=== PATIENT | female | born 1995 | race Caucasian/White ===

== ENCOUNTER 2018-01-02 12:44 | Emergency (ER) | payer BC ==
--- OUTSIDE RECORDS SUMMARY | 2018-01-02 12:57 | XMS REPORT ---
:1995 External Reference #:[id number] Author Organization [facility] [employer] Address [address] [address] Phone [phone] Care Team Providers Name Role Phone Tyler Boyer III, MD Primary Care Physician Unavailable Payers Type Date Identification Numbers Payment Provider Subscriber Commercial Policy Number: [id number] [employer] Jorge Luis Jessica PayID: [id number] [address] [address] [place] [address] Problems Description No Active Problems Family History Date Family Member(s) Problem(s) Comments General MGF-dementia, artificial heart valve General PGM- diabetes, heart disease Father Hypertension Mother Ovarian Cancer Mother Cervical Cancer Mother tourette's syndrome Social History Type Date Description Comments Marital Status Single Lives With Parents 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[facility] [place] Use Denies alcohol use Smoking Patient has never smoked Recreational Drug Use Denies Drug Use Daily Caffeine Does Not Consume Caffeine Exercise Type/Frequency Exercises regularly aerobic routine most days, 15 min Allergies, Adverse Reactions, Alerts Date Description Reaction Status Severity Comments 07/07/2017 Penicillins Hives active Medications Medication Date Status Form Strength Qnty SIG Indications Ordering Provider Lactaid 08/10/ Active Chewtabs 30uni take 1 tab by Andres Olivares 2016 ts mouth after Floyd, eating dairy DO FACC Metoprolol 08/10/ Active Tablets 25mg 15tab 1 by mouth as I49.3 Andres Olivares Tartrate 2017 s needed for Floyd, frequent DO FACC palpitations Microgestin / Active Tablets 1.5-30mg- 1 tablet by Unknown 1.5/30 0000 mcg mouth daily Tacrolimus / Active Ointment 0.1% apply to Unknown 0000 affected area prn Acetaminophen / Active Tablets 325mg 2 tablets by Unknown 0000 mouth every 6 hours as needed for pain/fever Midol Complete 00/ Active as needed Unknown 0000 Zofran / Active Tablets 4mg take 1 by Unknown 0000 mouth twice a day as needed for nausea Ketoconazole / Hx Cream 2% apply twice a Unknown 0000 - day 2016 Minocycline ER / Hx Tablets 90mg 1 by mouth Mcalliste 0000 daily Fernanda fong MD Immunizations CPT Code Status Date Vaccine Lot # [id number] Given 2015 Tdap - Tetanus/Diptheria/Acellular Pertussis [id number] Given 12/15/2010 Tdap - Tetanus/Diptheria/Acellular Pertussis Vital Signs Date Vital Result Comment 12/20/2017 Heart Rate 80 /min Respiratory Rate 16 /min Body Temperature 98.9 F 11/15/2017 Weight 134.00 lb Heart Rate 109 /min BP Systolic Sitting 118 mmHg BP Diastolic Sitting 76 mmHg Body Temperature 99.3 F O2 % BldC Oximetry 98 % 11/08/2017 Height 69 inches 5'9" Weight 135.00 lb Heart Rate 80 /min BP Systolic 120 mmHg BP Diastolic 82 mmHg Respiratory Rate 16 /min Body Temperature 98.5 F BMI (Body Mass Index) 19.9 kg/m2 10/06/2017 Weight 135.00 lb Heart Rate 94 /min BP Systolic 120 mmHg BP Diastolic 70 mmHg Body Temperature 97.6 F O2 % BldC Oximetry 98 % 08/10/2017 Height 67 inches 5'7" Weight 131.50 lb Heart Rate 88 /min BP Systolic 132 mmHg Rue reg cuff BP Diastolic 96 mmHg Rue reg cuff BP Systolic Sitting 128 mmHg Lue reg ncuff BP Diastolic Sitting 96 mmHg Lue reg ncuff BP Systolic Standing 124 mmHg Lue reg cuff BP Diastolic Standing 94 mmHg Lue reg cuff Respiratory Rate 16 /min BMI (Body Mass Index) 20.6 kg/m2 07/07/2017 Height 67 inches 5'7" Weight 138.38 lb Heart Rate 81 /min BP Systolic Sitting 120 mmHg BP Diastolic Sitting 78 mmHg Body Temperature 98.2 F O2 % BldC Oximetry 97 % BMI (Body Mass Index) 21.7 kg/m2 Results Test Date Test Result H/L Range Note Basic Metabolic Panel 07/12/2017 Sodium 137 mmol/L 133-145 Potassium 4.2 mmol/L 3.5-5.0 Chloride 103 mmol/L 101-111 Co2 Carbon Dioxide 27 mmol/L 22-32 Anion Gap 7 mmol/L 2-11 Glucose 73 mg/dL 70-100 Blood Urea Nitrogen 6 mg/dL 6-24 Creatinine 0.59 mg/dL 0.51-0.95 BUN/Creatinine Ratio 10.2 8-20 Calcium 9.2 mg/dL 8.6-10.3 Egfr Non- 127.5 >60 Egfr 163.9 >60 1 Laboratory test finding 07/12/2017 Magnesium 2.0 mg/dL 1.9-2.7 TSH (Thyroid Stim Horm) 1.88 mcIU/mL 0.34-5.60 Lipid Profile (Trig/Chol/HDL) 07/12/2017 Triglycerides 115 mg/dL 2 Cholesterol 273 mg/dL 3 HDL Cholesterol 41.4 mg/dL 4 LDL Cholesterol 209 mg/dL 5 1 Because ethnic data is not always readily available, this report includes an eGFR for both -Americans and non- Americans. The National Kidney Disease Education Program (NKDEP) does not endorse the use of the MDRD equation for patients that are not between the ages of 18 and 70, are , have extremes of body size, muscle mass, or nutritional status, or are non- or non-. According to the National Kidney Foundation, irrespective of diagnosis, the stage of the disease is based on the level of kidney function: Stage Description GFR(mL/min/1.73 m(2)) 1 Kidney damage with normal or decreased GFR 90 2 Kidney damage with mild decrease in GFR 60-89 3 Moderate decrease in GFR 30-59 4 Severe decrease in GFR 15-29 5 Kidney failure <15 (or dialysis) 2 Desirable <150 Borderline high 150-199 High 200-499 Very High >500 3 Desirable <200 Borderline high 200-239 High >239 4 Low <40 Desirable: 40-60 High: >60 5 Desirable: <100 mg/dL Near Optimal: 100-129 mg/dL Borderline High: 130-159 mg/dL High: 160-189 mg/dL Very High: >189 mg/dL Procedures Date CPT Code Description Status 08/10/2017 47600 EKG Tracing & Interpretation Completed 07/14/2017 74737 Holter Monitor Review (24 hr)dr potts &alicia; shelley Completed only 07/11/2017 96891 ECG Monitor/Recording W/Visual Superimposition Scanning Completed Encounters Type Date Location Provider CPT E/M Dx Office Visit 11/15/2017 [facility] Tyler Boyer, [address] R11.0 9:00a - Flaco Chou Office Visit 11/08/2017 [facility] [place] [address] N64.59 2:45p Of [facility] Office Visit 10/06/2017 [facility] Internal Medicine Khadijah Jackson, 80534 N63.10 10:30a - Ranjan Chou Office Visit 08/10/2017 [facility] Andres Floyd, [address] I49.3 1:00p [facility] FACC E78.5 Office Visit 07/07/2017 3:50p [facility] Internal Medicine Tyler Boyre, 00902 Z00.00 - Flaco Chou R00.2 Z13.1 Z13.220 Z85.43 Plan of Care 12/20/2017 - Shruti Hwang MDN64.59 Other signs and symptoms in breastNew Labs:Cytology Non-GynSurgical PathologyFollow up:As needed
--- NOTE | 2018-01-02 14:01 | RAD ---
HISTORY: Palpitation COMPARISONS: September 12, 2015 VIEWS: 4: Frontal dual-energy and lateral views of the chest. FINDINGS: CARDIOMEDIASTINAL SILHOUETTE: The cardiomediastinal silhouette is normal. JORDEN: The jorden are normal. PLEURA: The costophrenic angles are sharp. No pleural abnormalities are noted. LUNG PARENCHYMA: There is minimal linear opacification of the left lung base, stable from 2015, suggestive of pleural parenchymal scarring ABDOMEN: The upper abdomen is clear. There is no subphrenic gas. BONES AND SOFT TISSUES: There is a scoliotic curvature of the spine. OTHER: None. IMPRESSION: NO ACTIVE CARDIOPULMONARY DISEASE.
[2018-01-02 14:35] LABS: ABS Basophils 0 10^3/ul (0-0.2); ABS Eosinophils 0 10^3/ul (0-0.6); ABS Lymphocytes 1.5 10^3/ul (1.0-4.8); ABS Monocytes 0.4 10^3/ul (0-0.8); ABS Neutrophils 2.7 10^3/ul (1.5-7.7); ABS Nucleated RBC 0 10^3/ul; Eosinophil % 0.9 % (0-6); Hematocrit 44 % (35-47); Hemoglobin 14.8 g/dl (12.0-16.0); Lymphocyte % 32.5 % (25-47); Mean Corpuscular HGB Conc 34 g/dl (31-36); Mean Corpuscular Hemoglobin 30 pg (27-31); Mean Corpuscular Volume 90 fL (80-97); Mean Platelet Volume 7.9 um3 (7.4-10.4); Nucleated Red Blood Cells % 0.1; Platelet Count 188 10^3/ul (150-450); Red Blood Count 4.89 10^6/ul (4.0-5.4); Red Cell Distribution Width 14 % (10.5-15); White Blood Count 4.6 10^3/ul (3.5-10.8)
--- NOTE | 2018-01-02 15:49 | ED ---
Philipp Jeter Julia, scribed for Senthil Cortez on 01/02/18 at 1342 . Palpitations / Dysrhythmia - HPI Summary HPI Summary: This patient is a 22 year old F presenting to [facility] accompanied by her parents with a chief complaint of palpitations after eating dinner last night and after eating breakfast this morning. Patient describes palpitations as "racing ".Patient reports lightheadedness. Patient denies chest pain and SOB. Patient was a history of PVCs detected by a halter monitor. Patient is currently taking oral contraceptives. Patient denies a history of anxiety. - History of Current Complaint Chief Complaint: EDDysrhythmPalp Time Seen by Provider: 01/02/18 13:22 Hx Obtained From: Patient Onset/Duration: Sudden Onset, Resolved Timing: Intermittent Episodes Lasting: Character: Fast Aggravating: Other - eating Associated Signs & Symptoms: Lightheadedness Related History: Similar Episode/Dx as - PVCs - Allergy/Home Medications Allergies/Adverse Reactions: Allergies Allergy/AdvReac Type Severity Reaction Status Date / Time MS Penicillins [Penicillins] Allergy Hives Verified 09/12/15 12:24 PMH/Surg Hx/FS Hx/Imm Hx Cardiovascular History: Reports: Other Cardiovascular Problems/Disorders Musculoskeletal History: Denies: Hx Scoliosis Neurological History: Reports: Hx Headaches Denies: Other Neuro Impairments/Disorders - Cancer History Cancer Type, 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 Negative: Chest Pain Negative: Shortness Of Breath All Other Systems Reviewed And Are Negative: Yes Physical Exam - Summary Physical Exam Summary: Appearance: Well appearing, no pain distress Skin: warm, dry, reflects adequate perfusion Head/face: normal Eyes: EOMI, SMITA ENT: normal Neck: supple, non-tender Respiratory: CTA, breath sounds present Cardiovascular: RRR, pulses symmetrical Abdomen: non-tender, soft Bowel: present Musculoskeletal: normal, strength/ROM intact Neuro: normal, sensory motor intact, A&Ox3 Triage Information Reviewed: Yes Vital Signs On Initial Exam: Initial Vitals Temp Pulse Resp BP Pulse Ox 98.2 F 116 20 133/91 99 01/02/18 12:46 01/02/18 12:46 01/02/18 12:46 01/02/18 12:46 01/02/18 12:46 Vital Signs Reviewed: Yes Diagnostics - Vital Signs Vital Signs Temp Pulse Resp BP Pulse Ox 01/02/18 12:46 98.2 F 116 20 133/91 99 - Laboratory Lab Results: Lab Results 01/02/18 01/02/18 01/02/18 Range/Units 14:24 14:24 14:24 WBC 4.6 (3.5-10.8) 10^3/ul RBC 4.89 (4.0-5.4) 10^6/ul Hgb 14.8 (12.0-16.0) g/dl Hct 44 (35-47) % MCV 90 (80-97) fL MCH 30 (27-31) pg MCHC 34 (31-36) g/dl RDW 14 (10.5-15) % Plt Count 188 (150-450) 10^3/ul MPV 7.9 (7.4-10.4) um3 Neut % (Auto) 58.1 (38-83) % Lymph % (Auto) 32.5 (25-47) % [place] % (Auto) 7.6 H (0-7) % Eos % (Auto) 0.9 (0-6) % Baso % (Auto) 0.9 (0-2) % Absolute Neuts (auto) 2.7 (1.5-7.7) 10^3/ul Absolute Lymphs (auto) 1.5 (1.0-4.8) 10^3/ul Absolute Monos (auto) 0.4 (0-0.8) 10^3/ul Absolute Eos (auto) 0 (0-0.6) 10^3/ul Absolute Basos (auto) 0 (0-0.2) 10^3/ul Absolute Nucleated RBC 0 10^3/ul Nucleated RBC % 0.1 INR (Anticoag Therapy) (0.77-1.02) APTT (26.0-36.3) seconds D-Dimer, Quantitative (Less Than 230) ng/mL Sodium 137 (133-145) mmol/L Potassium 3.7 (3.5-5.0) mmol/L Chloride 105 (101-111) mmol/L Carbon Dioxide 25 (22-32) mmol/L Anion Gap 7 (2-11) mmol/L BUN 10 (6-24) mg/dL Creatinine 0.65 (0.51-0.95) mg/dL Est GFR ( Amer) 145.3 (>60) Est GFR (Non-Af Amer) 113.0 (>60) BUN/Creatinine Ratio 15.4 (8-20) Glucose 79 (70-100) mg/dL Calcium 9.7 (8.6-10.3) mg/dL Total Bilirubin 0.50 (0.2-1.0) mg/dL AST 12 L (13-39) U/L ALT 10 (7-52) U/L Alkaline Phosphatase 35 (34-104) U/L Troponin I 0.00 (<0.04) ng/mL B-Natriuretic Peptide 19 ( - 100) pg/mL Total Protein 7.2 (6.4-8.9) g/dL Albumin 4.5 (3.2-5.2) g/dL Globulin 2.7 (2-4) g/dL Albumin/Globulin Ratio 1.7 (1-3) TSH 1.53 (0.34-5.60) mcIU/mL Beta HCG, Quant < 0.60 mIU/mL 01/02/18 Range/Units 14:24 WBC (3.5-10.8) 10^3/ul RBC (4.0-5.4) 10^6/ul Hgb (12.0-16.0) g/dl Hct (35-47) % MCV (80-97) fL MCH (27-31) pg MCHC (31-36) g/dl RDW (10.5-15) % Plt Count (150-450) 10^3/ul MPV (7.4-10.4) um3 Neut % (Auto) (38-83) % Lymph % (Auto) (25-47) % [place] % (Auto) (0-7) % Eos % (Auto) (0-6) % Baso % (Auto) (0-2) % Absolute Neuts (auto) (1.5-7.7) 10^3/ul Absolute Lymphs (auto) (1.0-4.8) 10^3/ul Absolute Monos (auto) (0-0.8) 10^3/ul Absolute Eos (auto) (0-0.6) 10^3/ul Absolute Basos (auto) (0-0.2) 10^3/ul Absolute Nucleated RBC 10^3/ul Nucleated RBC % INR (Anticoag Therapy) 1.00 (0.77-1.02) APTT 30.6 (26.0-36.3) seconds D-Dimer, Quantitative < 200 (Less Than 230) ng/mL Sodium (133-145) mmol/L Potassium (3.5-5.0) mmol/L Chloride (101-111) mmol/L Carbon Dioxide (22-32) mmol/L Anion Gap (2-11) mmol/L BUN (6-24) mg/dL Creatinine (0.51-0.95) mg/dL Est GFR ( Amer) (>60) Est GFR (Non-Af Amer) (>60) BUN/Creatinine Ratio (8-20) Glucose (70-100) mg/dL Calcium (8.6-10.3) mg/dL Total Bilirubin (0.2-1.0) mg/dL AST (13-39) U/L ALT (7-52) U/L Alkaline Phosphatase (34-104) U/L Troponin I (<0.04) ng/mL B-Natriuretic Peptide ( - 100) pg/mL Total Protein (6.4-8.9) g/dL Albumin (3.2-5.2) g/dL Globulin (2-4) g/dL Albumin/Globulin Ratio (1-3) TSH (0.34-5.60) mcIU/mL Beta HCG, Quant mIU/mL Result Diagrams: 01/02/18 14:24 01/02/18 14:24 Lab Statement: Any lab studies that have been ordered have been reviewed, and results considered in the medical decision making process. - Radiology CXR Radiology Interpretation Completed By: Radiologist - NO ACTIVE CARDIOPULMONARY DISEASE. ED Physician has reviewed this chart. - EKG 1331 Cardiac Rate: NL - at 97 BPM EKG Rhythm: Sinus Rhythm EKG Interpretation: no acute changes Re-Evaluation - Re-Evaluation 1 Re-Evaluation Time: 15:32 Comment: Results discussed with patient; pt seems disappointed. Patient will be discharged. Course/Dx - Course Course Of Treatment: Patient presents with palpitations after eating dinner last night and after eating breakfast this morning. Patient denies chest pain and SOB. Patient was a history of PVCs. An EKG is of no acute concern. A CXR reveals no acute pathology. Lab results are unremarkable. Patient will be discharged. - Diagnoses Differential Diagnosis/HQI/PQRI: Positive: Panic Disorder, Pulmonary Embolism Provider Diagnoses: Palpitations, History of anxiety Discharge - Sign-Out/Discharge Documenting (check all that apply): Discharge - Discharge Plan Condition: Stable Disposition: HOME Prescriptions: hydrOXYzine pamoate [Vistaril] 25 mg PO TID #15 capsule MDD 3 Patient Education Materials: Heart Palpitations (ED) Referrals: [facility] [place] [facility] [place]Outside] - As Soon As Possible (Follow up with Physician Referral center to find a primary care physician.) - Billing Disposition and Condition Condition: STABLE Disposition: HOME The documentation as recorded by the Philipp hutchison Julia accurately reflects the service I personally performed and the decisions made by , Senthil Cortez.
[2018-01-02 15:54] VITALS: BP 124/86
== END 2018-01-02 15:56 | disposition home or self-care (01) ==
LOC: ED 12:44
DX: R00.2 Palpitations (principal); Z86.79 Personal history of other diseases of the circulatory system; Z85.43 Personal history of malignant neoplasm of ovary
CPT/HCPCS: 36415; 71046; 80053; 83880; 84443; 84484; 84702; 85025; 85379; 85610; 85730; 93005; 99282

== ENCOUNTER 2019-03-30 13:10 | Emergency (ER) | payer BC ==
[2019-03-30 13:17] VITALS: BP 109/72
--- NOTE | 2019-03-30 15:44 | UC ---
Skin Complaint HPI - HPI Summary HPI Summary: 23 y/o female presents to the urgent care c/o a lump in her posterior neck - History of Current Complaint Chief Complaint: UCSkin Time Seen by Provider: 03/30/19 15:09 Stated Complaint: LUMP ON NECK Hx Obtained From: Patient Hx Last Menstrual Period: 02/27/19 Pain Intensity: 0 - Allergy/Home Medications Allergies/Adverse Reactions: Allergies Allergy/AdvReac Type Severity Reaction Status Date / Time Penicillins Allergy Hives Verified 03/30/19 13:17 PMH/Surg Hx/FS Hx/Imm Hx - Surgical History Surgical History: Yes Surgery Procedure, Year, and Place: Left ovary removed - Family History Known Family History: Negative: Cardiac Disease Family History: Father with high cholesterol - Social History Alcohol Use: None Substance Use Type: None Smoking Status (MU): Never Smoked Tobacco Review of Systems All Other Systems Reviewed And Are Negative: Yes Physical Exam - Summary Physical Exam Summary: VITAL SIGNS: Reviewed. GENERAL: Patient is a well developed and nourished thin female child who is sitting comfortable in the examining table. Patient is not in any acute respiratory distress. HEAD AND FACE: No signs of trauma. No ecchymosis, hematomas or skull depressions. No sinus tenderness. EYES: PERRLA, EOMI x 2, No injected conjunctiva, no nystagmus. No photophobia. EARS: Hearing grossly intact. Ear canals and tympanic membranes are within normal limits. MOUTH: Positive pharynx with mild erythema, no exudates, No B/L tonsillar enlargement , no exudate. Uvula in midline. edematous nasal mucosa w/ clear nasal discharge, clear PND NECK: Supple, trachea is midline, Positive anterior cervical lymphadenopathy, no JVD, no carotid bruit, no c-spine tenderness, neck with full ROM. No meningeal signs, no Kernig's or brudzinskis signs. CHEST: Symmetric, no tenderness at palpation LUNGS: Clear to auscultation bilaterally. No wheezing or crackles. CVS: Regular rate and rhythm, S1 and S2 present, no murmurs or gallops appreciated. ABDOMEN: Soft, non-tender. No signs of distention. No rebound no guarding, and no masses palpated. Bowel sounds are normal. EXTREMITIES: FROM in all major joints, no edema, no cyanosis or clubbing. NEURO: Alert and oriented x 3. No acute neurological deficits. Pt follows commands. SKIN: Dry and warm Triage Information Reviewed: Yes Vital Signs: Initial Vital Signs Temp 98.9 F 03/30/19 13:14 Pulse 73 03/30/19 13:14 Resp 18 03/30/19 13:14 BP 109/72 03/30/19 13:14 Pulse Ox 100 03/30/19 13:14 Course/Dx - Differential Diagnoses - Skin Complaint Differential Diagnoses: Abscess, Cellulitis, Lymphadenitis, Lymphangitis, Other - lymphoadenophathy, - Diagnoses Provider Diagnosis: Lymphadenopathy, posterior cervical Discharge - Sign-Out/Discharge Documenting (check all that apply): Patient Departure - d/c home All imaging exams completed and their final reports reviewed: No Studies - Discharge Plan Condition: Stable Disposition: HOME Patient Education Materials: Lymphadenopathy (ED) Referrals: Khadijah Jacksno MD [Primary Care Provider] - 2 Days Additional Instructions: 1-Please take ibuprofen PO q6-8hrs prn as instructed after meals to alleviate pain and swelling. Increase fluid intake, eat well, rest and avoid strenuous exercise 2- Blood works was sent to the lab you will be notified of any abnormality for further management. 3- close observation and if it increases in size please f/y w/ your PCP in 1 week for further evaluation and treatment - Billing Disposition and Condition Condition: STABLE Disposition: Home
[2019-03-30 19:00] LABS: ABS Eosinophils 0.1 10^3/ul (0-0.6); ABS Lymphocytes 1.8 10^3/ul (1.0-4.8); ABS Monocytes 0.3 10^3/ul (0-0.8); ABS Neutrophils 2.1 10^3/ul (1.5-7.7); Eosinophil % 1.4 %; Hematocrit 40 % (35-47); Hemoglobin 13.9 g/dL (12.0-16.0); Lymphocyte % 42.1 %; Mean Corpuscular HGB Conc 35 g/dL (31-36); Mean Corpuscular Hemoglobin 30 pg (27-31); Mean Corpuscular Volume 87 fL (80-97); Mean Platelet Volume 9.3 fL (7.4-10.4); Platelet Count 189 10^3/uL (150-450); Red Blood Count 4.57 10^6 /uL (3.70-4.87); Red Cell Distribution Width 13 % (10-15); White Blood Count 4.3 10^3/uL (3.5-10.8)
[2019-03-30 19:04] LABS: Albumin 4.3 g/dL (3.2-5.2); Potassium 3.9 mmol/L (3.5-5.0); Total Bilirubin 0.4 mg/dL (0.2-1.0)
[2019-03-30 19:10] LABS: BUN/Creatinine Ratio 17.6 (8-20); EGFR African American 128.6 (>60); EGFR Non-African American 106.3 (>60); Globulin 2.2 g/dL (2-4); Total Protein 6.5 g/dL (6.4-8.9)
--- NOTE | 2019-03-31 08:31 | UC ---
- Progress Note Progress Note: CBC wnl, mono neg cmp neg crp wnl no change ljj 03/31/19 Course/Dx - Diagnoses Provider Diagnoses: Lymphadenopathy, posterior cervical Discharge - Sign-Out/Discharge Documenting (check all that apply): Post-Discharge Follow Up All imaging exams completed and their final reports reviewed: No Studies - Discharge Plan Condition: Stable Disposition: HOME Patient Education Materials: Lymphadenopathy (ED) Referrals: Khadijah Jackson MD [Primary Care Provider] - 2 Days Additional Instructions: 1-Please take ibuprofen PO q6-8hrs prn as instructed after meals to alleviate pain and swelling. Increase fluid intake, eat well, rest and avoid strenuous exercise 2- Blood works was sent to the lab you will be notified of any abnormality for further management. 3- close observation and if it increases in size please f/y w/ your PCP in 1 week for further evaluation and treatment - Billing Disposition and Condition Condition: STABLE Disposition: Home
[2019-04-02 10:41] LABS: EBV Capsid Ag IgG Ab Positive (Negative); EBV Capsid Ag IgM Ab Negative (Negative); Epstein-Barr Nuclear Antigen Positive (Negative)
== END 2019-03-30 16:00 | disposition home or self-care (01) ==
LOC: UCEAST 13:10
DX: R59.1 Generalized enlarged lymph nodes (principal); Z88.0 Allergy status to penicillin
CPT/HCPCS: 36415; 80053; 85025; 86140; 86308; 86664; 86665; 99211; G0463